=== PATIENT | male | born 1990 | race African-American/Black ===

== ENCOUNTER 2024-09-29 16:50 | Inpatient (IN) | payer OTHER ==
[~2024-09-29] VITALS: Ht 180.3 cm; Wt 136.1 kg
[2024-09-29 16:53] VITALS: O2SAT 98
[2024-09-29 17:44] LABS: EOSINOPHILS % 0.6 % (0.0-5.0); HEMATOCRIT. 48.3 % (42.0-52.0); HEMOGLOBIN. 15.6 g/dL (14.0-18.0); LYMPHOCYTES % 35.1 % (20.0-50.0); MEAN CORPUSCULAR HEMOGLOBIN 27.4 pg (28.0-32.0); MEAN CORPUSCULAR HGB CONC 32.2 g/dL (31.0-37.0); MEAN CORPUSCULAR VOLUME 84.8 fL (80.0-94.0); MEAN PLATELET VOLUME 9.8 fl (7.4-10.4); NEUTROPHILS % 52.3 % (40.0-76.0); PLATELET 183 x1000/uL (130-400); RED BLOOD CELL COUNT 5.69 mill/uL (4.7-6.1); RED CELL DISTRIBUTION WIDTH 17.6 % (11.6-14.6)
[2024-09-29 17:51] LABS: CHLORIDE 110 mEq/L (98-107); POTASSIUM 4.2 mEq/L (3.5-5.1); SODIUM 150 mEq/L (136-145)
[2024-09-29] MEDS: SODIUM CHLORIDE 0.9% 1,000 ML IV ONE (17:51)
[2024-09-29 17:52] LABS: CARBON DIOXIDE 30 mEq/L (21-32)
[2024-09-29 17:53] LABS: CALCIUM 9.2 mg/dL (8.7-10.4)
[2024-09-29 17:57] LABS: CREATININE 1.6 mg/dL (0.6-1.3); GLUCOSE 90 mg/dL (70-105); UREA NITROGEN BLOOD 16 mg/dL (9-23)
[2024-09-29 17:58] LABS: TROPONIN I HIGH SENSITIVITY 8 ng/L (3.0-53)
[2024-09-29 17:59] LABS: ACETAMINOPHEN < 2 ug/mL (10-30); AMMONIA < 17 uMol/L (<32)
[2024-09-29 18:10] LABS: CREATINE KINASE 1774 IU/L (46-171)
[2024-09-29] MEDS: MIDAZOLAM HCL 2 MG/2 ML VIAL IM ONE (18:47)
[2024-09-29 19:10] LABS: ETHANOL BLOOD 417 mg/dL (<10)
[2024-09-29 20:36] LABS: CLARITY URINE CLEAR (CLEAR); COLOR URINE YELLOW (YELLOW); GLUCOSE URINE NEGATIVE (NEGATIVE); KETONES URINE NEGATIVE (NEGATIVE); LEUKOCYTE ESTERASE URINE NEGATIVE (NEGATIVE); NITRITE URINE NEGATIVE (NEGATIVE); OCCULT BLOOD URINE NEGATIVE (NEGATIVE); PH URINE 5.5 (4.5-8.0); PROTEIN URINE NEGATIVE (NEGATIVE); SPECIFIC GRAVITY URINE 1.009 (1.005-1.030); UROBILINOGEN URINE 0.2 E.U./dL (0.2-1.0)
[2024-09-29 20:58] LABS: *AMPHETAMINES SCREEN URINE NEGATIVE (NEGATIVE); *BARBITURATES SCREEN URINE NEGATIVE (NEGATIVE); *BENZODIAZEPINES SCREEN URINE PRESUMPTIVE POSITIVE (NEGATIVE); *COCAINE SCREEN URINE NEGATIVE (NEGATIVE); CANNABINOID URINE SCREEN NEGATIVE (NEGATIVE); ECSTASY MDMA SCREEN URINE NEGATIVE (NEGATIVE); METHADONE URINE SCREEN NEGATIVE (NEGATIVE); OPIATES URINE SCREEN NEGATIVE (NEGATIVE); PHENCYCLIDINE URINE SCREEN NEGATIVE (NEGATIVE)
[2024-09-29] MEDS ORDERED: LORAZEPAM 2MG/ML INJ IV PRN (21:30)
[2024-09-29] MEDS ORDERED: IPRATROPIUM/ALBUTEROL 0.5-3(2.5)MG/3ML NEB HHN PRN (21:30)
[2024-09-29] MEDS ORDERED: ONDANSETRON HCL 4MG/2ML INJ IV PRN (21:30)
[2024-09-29] MEDS ORDERED: DEXTROSE 50% WATER 50ML SYRINGE IV PRN (22:00)
[2024-09-29] MEDS: CHLORDIAZEPOXIDE 25MG CAPSULE PO SCH (22:00)
[2024-09-29 22:40] VITALS: BP 147/92; PULSE 93; RESP 16; TEMP 36.3; O2SAT 100
[2024-09-29] MEDS: THIAMINE HCL 200 MG in SODIUM CHLORIDE 0.9% 98 ML IV SCH (23:54)
[2024-09-30] VITALS: BP 156/91; PULSE 96; RESP 16; TEMP 36.1; O2SAT 100
[2024-09-30 01:29] VITALS: BP 143/78; PULSE 103; RESP 17; TEMP 36.4
[2024-09-30 04:00] VITALS: BP 140/90; PULSE 96; RESP 16; TEMP 36.1; O2SAT 100
[2024-09-30] MEDS: PANTOPRAZOLE 40MG DR TABLET PO SCH (05:53)
[2024-09-30] MEDS: BLOOD SUGAR DIAGNOSTIC STRIP TEST SCH (05:54)
[2024-09-30] MEDS: INSULIN LISPRO 100 UNITS/ML SUBCUT SCH (05:54)
[2024-09-30 06:37] LABS: CHLORIDE 109 mEq/L (98-107); POTASSIUM 4.1 mEq/L (3.5-5.1); SODIUM 149 mEq/L (136-145)
[2024-09-30 06:38] LABS: CALCIUM 8.7 mg/dL (8.7-10.4); CARBON DIOXIDE 27 mEq/L (21-32)
[2024-09-30 06:43] LABS: CREATININE 1.2 mg/dL (0.6-1.3); GLUCOSE 87 mg/dL (70-105); UREA NITROGEN BLOOD 12 mg/dL (9-23)
[2024-09-30 06:45] LABS: PHOSPHORUS 4.3 mg/dL (2.5-4.9)
[2024-09-30 06:48] LABS: BASOPHILS % 0.6 % (0.0-2.0); EOSINOPHILS % 1.1 % (0.0-5.0); HEMATOCRIT. 46.5 % (42.0-52.0); LYMPHOCYTES % 45.9 % (20.0-50.0); MEAN CORPUSCULAR HEMOGLOBIN 27.3 pg (28.0-32.0); MEAN CORPUSCULAR HGB CONC 32.4 g/dL (31.0-37.0); MEAN CORPUSCULAR VOLUME 84.4 fL (80.0-94.0); MEAN PLATELET VOLUME 10.1 fl (7.4-10.4); MONOCYTES % 7.4 % (2.0-8.0); PLATELET 177 x1000/uL (130-400); RED CELL DISTRIBUTION WIDTH 17.3 % (11.6-14.6); WHITE BLOOD COUNT 9.1 x1000/uL (4.5-11.0)
[2024-09-30 06:57] LABS: CREATINE KINASE 2604 IU/L (46-171)
[2024-09-30 08:00] VITALS: BP 168/83; PULSE 117; RESP 18; TEMP 36.4; O2SAT 100
[2024-09-30] MEDS: FOLIC ACID 1MG TABLET PO SCH (08:51)
[2024-09-30] MEDS ORDERED: LORAZEPAM 2MG/ML INJ IV PRN ×2 (10:45)
[2024-09-30] MEDS: LACTATED RINGERS 1,000 ML IV ONE (11:41)
[2024-09-30 12:00] VITALS: BP 169/100; PULSE 120; RESP 18; TEMP 36.5; O2SAT 100
[2024-09-30] MEDS: CLONIDINE 0.1MG TABLET PO PRN (12:03)
[2024-09-30] MEDS: AMLODIPINE 5MG TABLET PO NR (15:56)
[2024-09-30] MEDS ORDERED: INFLUENZA VACCINE 05/PF 0.5 ML SYRINGE IM ONE (18:00)
[2024-09-30] MEDS ORDERED: PNEUMOCOCCAL 20-VAL CONJ-DIP CRM 0.5ML IM ONE (18:00)
[2024-09-30] MEDS ORDERED: AMLODIPINE 5MG TABLET PO SCH (21:00)
== END 2024-09-30 17:13 | disposition left against medical advice (07) | DRG 56 ==
LOC: EDBD 16:50 → ER 16:50 → 5WST 22:36
PROVIDERS: ADMIT Internal Medicine; ATTEND Internal Medicine
DX: G31.2 Degeneration of nervous system due to alcohol (principal); G92.8 Other toxic encephalopathy; N17.0 Acute kidney failure with tubular necrosis; E87.0 Hyperosmolality and hypernatremia; M62.82 Rhabdomyolysis; Z68.41 Body mass index [BMI] 40.0-44.9, adult; G40.89 Other seizures; E66.01 Morbid (severe) obesity due to excess calories; E86.0 Dehydration; F10.129 Alcohol abuse with intoxication, unspecified; I10 Essential (primary) hypertension; Z53.29 Procedure and treatment not carried out because of patient's decision for other reasons; Y90.8 Blood alcohol level of 240 mg/100 ml or more; Z79.4 Long term (current) use of insulin; Z91.148 Patient's other noncompliance with medication regimen for other reason
CPT/HCPCS: 36415; 80048; 80305; 80307; 80320; 80329; 81003; 82140; 82550; 82962; 83036; 83735; 84100; 84484; 85025; 86705; 99291; C1893; J2250; J3411; J7030; J7050; G0480